=== PATIENT | male | born 1975 | race Caucasian/White ===

== ENCOUNTER → 2017-09-02 | Day surgery (SDC) | payer BC ==
[2017-08-26 16:08] VITALS: BMI 21.5
[~2017-09-02] MED LIST: EPINEPHrine/PF 1 MG/1 ML (1:1,000) AMPULE ONE; EPINEPHrine/PF 1 MG/1 ML (1:1,000) AMPULE SQ ONE; GLYCOPYRROLATE 0.2 MG/1 ML VIAL ONE; LACTATED RINGERS SOLUTION 1,000 ML IV SCH; MIDAZOLAM HCL 2 MG/2 ML SINGLE DOSE VIAL ONE; NEOSTIGMINE METHYLSULFATE 0.5 MG/ML - 10 ML MDV ONE; ONDANSETRON 4 MG/2 ML VIAL IVPUSH PRN; PROMETHAZINE HCL 25 MG/1 ML VIAL IVPUSH PRN; PROPOFOL 20 ML ONE; ROCURONIUM BROMIDE 50 MG/5 ML VIAL ONE; SUCCINYLCHOLINE CHLORIDE 200 MG/10 ML VIAL ONE; fentaNYL CITRATE 250 MCG/5 ML VIAL ONE; oxyCODONE HCL 5 MG TABLET PO PRN
--- NOTE | 2017-09-02 09:26 | OP ---
DATE OF OPERATION: PREOPERATIVE DIAGNOSIS: Left vocal cord mass. POSTOPERATIVE DIAGNOSIS: Left vocal cord mass. PROCEDURE: Direct microlaryngoscopy with excision of left vocal cord mass. SURGEON: Marc Coley MD ANESTHESIA: General endotracheal by Dr. Menjivar. INDICATIONS: The patient is a 42-year-old man with hoarseness for 3 months who , on office examination, was noted to have a left vocal cord mass. The nature and purpose of the proposed procedure as well as the risks, benefits, alternatives, and possible complications were discussed in detail with the patient who appeared to understand and wished to proceed with surgery. All questions were answered, and an informed consent was given by the patient. DESCRIPTION OF PROCEDURE: With the patient under general endotracheal anesthesia in the supine position, he was prepped and draped in the usual sterile fashion. The upper teeth were covered with a dental guard. A Dedo direct laryngoscope was introduced into the oral cavity and oropharynx, which were examined. The overall findings were normal except in the larynx. There was an omega shaped epiglottis and the larynx was noted to be significantly space-restricted and, therefore, a Cecelia scope had to be used instead. The scope was put into suspension on a Spence stand after the larynx was brought into view. Under microscopic magnification, a sessile, reddish granular-appearing mass on the anterior portion of the free margin of the left true vocal cord was identified and sharply resected from its underlying attachments. Hemostasis was achieved with topical epinephrine. The vocal cord was noted to be free of residual disease. The laryngoscope was taken off suspension and removed along with the dental guard, and when the patient awakened, he was extubated and discharged to the recovery room in satisfactory condition. ESTIMATED BLOOD LOSS: 1 mL. SPECIMEN: The specimen was sent for permanent pathology. COMPLICATIONS: There were no complications. MARC COLEY M.D. [id number] MTDD
[2017-09-02 11:03] VITALS: TEMP 98.3
[2017-09-02 12:10] VITALS: BP 117/61; PULSE 81
--- NOTE | 2017-09-03 13:20 | PATH ---
Surgical Pathology Report Patient Name: LINDA ELLIS Med. Rec. #: [id number] /Age/Gender: 1975 (Age: 42) / M Account: [id number] Location: [facility] SUR[facility] Taken: 09/02/2017 Received: 09/02/2017 Reported: 09/03/2017 Physicians: Marc Quintana Specimen(s) Received LEFT VOCAL CORD MASS Clinical History Vocal cord lesion Final Diagnosis VOCAL CORD, LEFT, MASS, EXCISION: VOCAL CORD POLYP. Electronically Signed Hyun Mckeon M.D. Gross Description Received in formalin, labeled "left vocal cord mass" is a bates, irregular portion of soft tissue measuring 0.3 cm. in greatest dimension. The specimen is submitted in toto in one cassette. /09/02/201709/02/2017
== END | disposition home or self-care (01) ==
LOC: JASU-SURG 06:16
PROVIDERS: ATTEND Otolaryngology
PROC: 0CBV8ZX Excision of Left Vocal Cord, Via Natural or Artificial Opening Endoscopic, Diagnostic (ICD-10-PCS; principal; 2017-09-02 07:30)
DX: J38.1 Polyp of vocal cord and larynx (principal)
CPT/HCPCS: 88305-TC; 94760